=== PATIENT | male | born 1980 | race Native Hawaiian/Other Pacific Islander ===

== ENCOUNTER 2017-12-01 19:50 | Inpatient (IN) | payer OTHER ==
[~2017-12-01] VITALS: Ht 165.1 cm; Wt 60.4 kg
[2017-12-01 20:05] VITALS: BP 131/78; PULSE 95; RESP 12; TEMP 97.5; O2SAT 98
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
[2017-12-01 20:33] LABS: BASOPHIL # 0.1 TH/MM3 (0-0.2); BASOPHIL % 0.5 % (0.0-2.0); EOSINOPHIL % 0.1 % (0.0-4.0); HEMATOCRIT 45.8 % (39.0-51.0); HEMOGLOBIN 15.4 GM/DL (13.0-17.0); LYMPHOCYTE # 1.2 TH/MM3 (1.0-4.8); MEAN CELL VOLUME 87.5 FL (80.0-100.0); MEAN CORPUSCULAR HEMOGLOBIN 29.4 PG (27.0-34.0); MEAN CORPUSCULAR HGB CONC 33.6 % (32.0-36.0); MONO % 6.6 % (0.0-8.0); MONOCYTE # 1.2 TH/MM3 (0-0.9); NEUT % 85.8 % (16.0-70.0); PLATELET COUNT 231 TH/MM3 (150-450); RED BLOOD COUNT 5.24 MIL/MM3 (4.50-5.90); RED CELL DISTRIBUTION WIDTH 13.4 % (11.6-17.2); WHITE BLOOD COUNT 17.5 TH/MM3 (4.0-11.0)
[2017-12-01 20:50] VITALS: BP 128/72; PULSE 88; RESP 20; TEMP 98; O2SAT 98
[2017-12-01 20:59] LABS: ALBUMIN 4.3 GM/DL (3.4-5.0); AST (GOT) 25 U/L (15-37); BICARBONATE 24.5 MEQ/L (21.0-32.0); BLOOD UREA NITROGEN 14 MG/DL (7-18); CALCIUM 9.5 MG/DL (8.5-10.1); CHLORIDE 105 MEQ/L (98-107); CREATININE 1.43 MG/DL (0.60-1.30); GLOMERULAR FILTRATION RATE 56 ML/MIN (>89); GLUCOSE,RANDOM 76 MG/DL (74-106); SODIUM (NA) 139 MEQ/L (136-145)
[2017-12-01 21:12] LABS: ALKALINE PHOSPHATASE 52 U/L (45-117); ALT (GPT) 21 U/L (12-78); TOTAL BILIRUBIN ADULT 0.5 MG/DL (0.2-1.0); TOTAL PROTEIN 8.1 GM/DL (6.4-8.2)
[2017-12-01 21:16] LABS: ACETAMINOPHEN LESS THAN 2.0 MCG/ML (10.0-30.0)
[2017-12-01] MEDS ORDERED: TETANUS/DIPHTHERIA TOXOID ADULT 0.5 ML VIAL IM ONE (21:30)
[2017-12-01] MEDS ORDERED: ZIPRASIDONE MESYLATE 20 MG VIAL IM ONE (21:30)
--- NOTE | 2017-12-01 22:01 | RADRPT ---
EXAM DATE: 12/01/2017 9:57 PM EDT AGE/SEX: 37 years / Male INDICATIONS: Altered mental status. CLINICAL DATA: This is the patient's initial encounter. Patient reports that signs and symptoms have been present for 1 day and indicates a pain score of Nonresponsive. MEDICAL/SURGICAL HISTORY: . Substance abuse Appendectomy. RADIATION DOSE: 34.96 CTDI (mGy) COMPARISON: No prior exams available for comparison. TECHNIQUE: CT of the head without contrast. Using automated exposure control and adjustment of the mA and/or kV according to patient size, radiation dose was kept as low as reasonably achievable to ob tain optimal diagnostic quality images. DICOM format image data is available electronically for revi ew and comparison. FINDINGS: Cerebrum: The ventricles are normal for age. No evidence of midline shift, mass lesion, hemorrhage or acute infarction. No extraaxial fluid collections are seen. Posterior Fossa: The cerebellum and brainstem are intact. The 4th ventricle is midline. The cerebe llopontine angle is unremarkable. Extracranial: The visualized portion of the orbits is intact. Skull: The calvaria is intact. No evidence of skull fracture. CONCLUSION: 1. No acute intracranial abnormality Electronically signed by: Umesh Iglesias MD 12/01/2017 10:00 PM EDT
--- NOTE | 2017-12-01 22:09 | RADRPT ---
EXAM DATE: 12/01/2017 10:00 PM EDT AGE/SEX: 37 years / Male INDICATIONS: Rib pain. CLINICAL DATA: This is the patient's initial encounter. Patient reports that signs and symptoms have been present for 1 day and indicates a pain score of Nonresponsive. MEDICAL/SURGICAL HISTORY: Non-responsive. Non-responsive. COMPARISON: No prior exams available for comparison. FINDINGS: There is no evidence of displaced fracture. No destructive lesions or areas of periosteal thickening are seen. Expiratory view of the chest is negative for pneumothorax. The mediastinal structures ar e midline. CONCLUSION: No fracture seen. Electronically signed by: Umesh Iglesias MD 12/01/2017 10:07 PM EDT
--- NOTE | 2017-12-01 22:11 | RADRPT ---
EXAM DATE: 12/01/2017 10:09 PM EDT AGE/SEX: 37 years / Male INDICATIONS: Pain. CLINICAL DATA: This is the patient's initial encounter. Patient reports that signs and symptoms have been present for 1 day and indicates a pain score of Nonresponsive. MEDICAL/SURGICAL HISTORY: Non-responsive. Non-responsive. COMPARISON: No prior exams available for comparison. FINDINGS: Bony structures are intact and in normal alignment. Osseous density is normal. Soft tissues are unre markable. No radiopaque foreign bodies seen. CONCLUSION: No acute fracture. Electronically signed by: Umesh Iglesias MD 12/01/2017 10:10 PM EDT
--- NOTE | 2017-12-01 22:11 | RADRPT ---
EXAM DATE: 12/01/2017 10:02 PM EDT AGE/SEX: 37 years / Male INDICATIONS: Pain. CLINICAL DATA: This is the patient's initial encounter. Patient reports that signs and symptoms have been present for 1 day and indicates a pain score of Nonresponsive. MEDICAL/SURGICAL HISTORY: Non-responsive. Non-responsive. COMPARISON: No prior exams available for comparison. FINDINGS: Bony structures are intact and in normal alignment. Joints are intact without dislocation or signifi cant arthropathy. Osseous density is normal. Soft tissues are unremarkable. No radiopaque foreign bodies seen. CONCLUSION: Unremarkable right hip Electronically signed by: Umesh Iglesias MD 12/01/2017 10:09 PM EDT
--- NOTE | 2017-12-01 22:11 | RADRPT ---
EXAM DATE: 12/01/2017 10:03 PM EDT AGE/SEX: 37 years / Male INDICATIONS: Pain. CLINICAL DATA: This is the patient's initial encounter. Patient reports that signs and symptoms have been present for 1 day and indicates a pain score of Nonresponsive. MEDICAL/SURGICAL HISTORY: Non-responsive. Non-responsive. COMPARISON: No prior exams available for comparison. FINDINGS: Bony structures are intact and in normal alignment. Osseous density is normal. Soft tissues are unre markable. No radiopaque foreign bodies seen. Sclerotic focus proximal phalanx great toe. CONCLUSION: No acute fracture. Probable bone island great toe. Electronically signed by: Umesh Iglesias MD 12/01/2017 10:10 PM EDT
[2017-12-02 01:29] VITALS: BP 132/70; PULSE 86; RESP 20; O2SAT 98
[2017-12-02 10:43] VITALS: BP 102/58; PULSE 82; RESP 17; O2SAT 98
[2017-12-02 13:54] VITALS: BP 105/55; PULSE 65; RESP 18; O2SAT 98
[2017-12-02 18:38] VITALS: BP 116/69; PULSE 72; RESP 18; O2SAT 100
[2017-12-02 21:15] VITALS: BP 123/64; PULSE 62; RESP 18; TEMP 97.4; O2SAT 99
[2017-12-02] MEDS ORDERED: ALUMINUM/MAGNESIUM/SIMETH 30 ML CUP PO PRN (22:00)
[2017-12-02] MEDS ORDERED: LORazepam 2 MG/ML VIAL IM PRN (22:00)
[2017-12-02] MEDS ORDERED: LORazepam 1 MG TAB PO PRN (22:00)
[2017-12-02] MEDS ORDERED: ACETAMINOPHEN 325 MG TAB PO PRN (22:00)
[2017-12-02] MEDS ORDERED: MAGNESIUM HYDROXIDE SUSP 30 ML CUP PO PRN (22:00)
[2017-12-03 05:23] VITALS: BP 102/66; PULSE 70; RESP 16; TEMP 97.6; O2SAT 97
[2017-12-03] MEDS: NICOTINE 21 MG/24 HR PATCH T-DERMAL SCH (07:34)
[2017-12-03 10:13] LABS: CHOLESTEROL 171 MG/DL (120-200); CHOLESTEROL/ HDL RATIO 1.68 RATIO; HDL CHOLESTEROL 101.7 MG/DL (40.0-60.0); LDL CHOLESTEROL 44 MG/DL (0-99); TRIGLYCERIDES 127 MG/DL (42-150)
[2017-12-03] MEDS: OLANZapine 5 MG TAB PO SCH ×2 (12:30→21:39)
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
[2017-12-03 18:10] VITALS: BP 131/73; PULSE 76; RESP 16; TEMP 97.8; O2SAT 99
[2017-12-03] MEDS: REMOVE OLD NICOTINE PATCH T-DERMAL SCH (21:00)
[2017-12-03] MEDS: MIRTAZAPINE 15 MG TAB PO SCH (21:39)
[2017-12-03 22:41] LABS: HEMOGLOBIN A1C 5.3 % (4.3-6.0)
[2017-12-04 06:27] VITALS: BP 131/63; PULSE 73; RESP 18; TEMP 98.1; O2SAT 99
[2017-12-04] MEDS: NICOTINE 21 MG/24 HR PATCH T-DERMAL SCH (09:00)
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
[2017-12-04] MEDS: OLANZapine 5 MG TAB PO SCH ×2 (09:34→20:39)
[2017-12-04 18:09] VITALS: BP 118/78; PULSE 72; RESP 19; TEMP 97.7; O2SAT 99
[2017-12-04] MEDS: MIRTAZAPINE 15 MG TAB PO SCH (20:39)
[2017-12-04] MEDS: REMOVE OLD NICOTINE PATCH T-DERMAL SCH (20:40)
[2017-12-05 05:30] VITALS: BP 137/71; PULSE 68; RESP 20; TEMP 97.8; O2SAT 98
[2017-12-05] MEDS: NICOTINE 21 MG/24 HR PATCH T-DERMAL SCH (09:00)
[2017-12-05] MEDS: OLANZapine 5 MG TAB PO SCH ×2 (09:37→21:33)
--- NOTE | 2017-12-05 13:09 | HHI.PYPN ---
Subjective Remarks Reviewed electronic medical record and discussed case with staff. Follow-up was conducted in patient's room. Patient is discharged focused. He reports that he "feels a lot better". However he seems to lack any insight into why he is here. He is reporting that he was merely on the bridge trying to get help from the police. 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 His speech is clear, organized, and logical. However, his story is quite bizarre. Mental Status Examination Appearance: Disheveled Consciousness: Alert Orientation: Person, Place Motor Activity: Normal gait Speech: Unremarkable Language: Adequate Fund of Knowledge: Inadequate Attention and Concentration: Adequate Mood: Appropriate Affect: Sad Thought Process & Associations: Linear Thought Content: Appropriate Hallucination Type: None Delusion Type: Paranoid, Other (persecutory) Suicidal Ideation: No Suicidal Plan: No Suicidal Intention: No Homicidal Ideation: No Homicidal Plan: No Homicidal Intention: No Insight: Poor Judgment: Poor Results Vitals/IOs Vital Signs Date Time Temp Pulse Resp B/P (MAP) Pulse Ox O2 Delivery O2 Flow Rate FiO2 12/05/17 05:30 97.8 68 20 137/71 (93) 98 12/02/17 18:38 Room Air Intake and Output 12/05/17 12/05/17 12/05/17 07:59 15:59 23:59 Intake Total 120 ml Balance 120 ml Assessment & Plan Problem List: (1) Psychosis ICD Codes: F29 - Unspecified psychosis not due to a substance or known physiological condition (2) Crack cocaine use ICD Codes: F14.90 - Cocaine use, unspecified, uncomplicated Assessment & Plan Estimated LOS: Continue with current treatment plan. Patient will be evaluated by attending psychiatrist tomorrow. He lacks insight and is downplaying the events which brought him to be admitted. Days Justification for Cont. Inpt. Moving this patient to a less restrictive environment would likely result in decompensation. Norma Monae Dec 05, 2017 13:09
[2017-12-05] MEDS: hydrOXYzine HCL 50 MG TAB PO PRN (14:00)
[2017-12-05 18:09] VITALS: BP 127/60; PULSE 82; RESP 20; TEMP 98; O2SAT 98
[2017-12-05] MEDS: REMOVE OLD NICOTINE PATCH T-DERMAL SCH (21:00)
[2017-12-05] MEDS: MIRTAZAPINE 15 MG TAB PO SCH (21:33)
[2017-12-06 05:36] VITALS: BP 114/68; PULSE 65; RESP 18; TEMP 97.4; O2SAT 99
[2017-12-06] MEDS: NICOTINE 21 MG/24 HR PATCH T-DERMAL SCH (08:57)
[2017-12-06] MEDS: OLANZapine 5 MG TAB PO SCH ×2 (08:57→20:59)
--- NOTE | 2017-12-06 11:02 | PD.TTN ---
Patient Problems 1. Discharge planning 2. Medication compliance 3. Knowledge deficit 4. Lack of coping skills Progress Toward Goals Provider Present: Dr. Yana Davis Provider Input: Dr. Khalil's treatment team was held to discuss patient's treatment plan, medication and discharge plan. Patient is medication compliant, doing better, denies suicidal and homicidal ideation Nurse(s) Input: Patient is cooperative, paranoid, has poor insight into situation. down playing situation. Psychiatric Counselors Present: Tonya Shelton [facility] Psych Therapist Input: Patient's speech is clear and organized, patient denies suicidal and homicidal ideation. Patient is medication compliant. Patient continues to have poor insight and down plays he's situation. Group Spec/RT/OT/AGUILAR Present: JEFF Hua Group Spec/RT/OT/AGUILAR Input: Patient does not attend groups Tonya Shelton [facility] Dec 06, 2017 11:02
--- NOTE | 2017-12-06 16:24 | HHI.PYPN ---
Subjective Remarks Patient seen for follow, chart reviewed. Discussion nursing staff reported the patient has been compliant with medications with no behavioral disturbances. Patient was found heavily on the unit noted B, cooperative. Patient states that he is feeling "good", reports feeling glad that his [place] in [place] and is currently at a dose shop. He reports having spoken to his brother in [place] and has plans to return there as he states does not have a reason to stay here at [facility]. Patient reports sleeping well, no difficulty eating and drinking, denies feeling depressed or paranoid. Patient states that he was likely having these ideas of paranoia secondary to recent cocaine use. Patient denies any perceptional services at this time. Review of Systems Except as stated in HPI: all other systems reviewed are Neg Mental Status Examination Appearance: Appropriate Consciousness: Alert Orientation: Person, Place Motor Activity: Normal gait Speech: Unremarkable Language: Adequate Fund of Knowledge: Inadequate Attention and Concentration: Adequate Mood: Appropriate Affect: Appropriate Thought Process & Associations: Intact, Linear Thought Content: Appropriate Hallucination Type: None Delusion Type: Paranoid (Denies today) Suicidal Ideation: No Suicidal Plan: No Suicidal Intention: No Homicidal Ideation: No Homicidal Plan: No Homicidal Intention: No Insight: Fair Judgment: Impulsive Results Vitals/IOs Vital Signs Date Time Temp Pulse Resp B/P (MAP) Pulse Ox O2 Delivery O2 Flow Rate FiO2 12/06/17 05:36 97.4 65 18 114/68 (83) 99 12/02/17 18:38 Room Air Assessment & Plan Problem List: (1) Psychosis ICD Codes: F29 - Unspecified psychosis not due to a substance or known physiological condition (2) Crack cocaine use ICD Codes: F14.90 - Cocaine use, unspecified, uncomplicated Assessment & Plan Patient this time denying any mood symptoms at this time, denying any paranoia or persecutory delusions. Patient recent symptoms may have been related to substance intoxication prior to admission but also in part to patient resuming medication regimen which patient has shown improvement. We will continue current medication regimen. Will continue monitor mood and behavior. Collateral information pending from patient's brother. Patient likely for discharge soon. Discharge planning in progress. Justification for Cont. Inpt. At risk for further decompensation if at lower level of care Umesh Davis MD Dec 06, 2017 16:24
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
[2017-12-06] MEDS: hydrOXYzine HCL 50 MG TAB PO PRN (18:17)
[2017-12-06] MEDS: MIRTAZAPINE 15 MG TAB PO SCH (20:59)
[2017-12-06] MEDS: REMOVE OLD NICOTINE PATCH T-DERMAL SCH (20:59)
[2017-12-07] MEDS: hydrOXYzine HCL 50 MG TAB PO PRN (02:08)
[2017-12-07 06:13] VITALS: BP 125/90; PULSE 64; RESP 17; TEMP 98.3; O2SAT 100
[2017-12-07] MEDS: NICOTINE 21 MG/24 HR PATCH T-DERMAL SCH (09:00)
[2017-12-07] MEDS: OLANZapine 5 MG TAB PO SCH (09:20)
[2017-12-07] MEDS ORDERED: MIRTA15 PO (11:55)
[2017-12-07] MEDS ORDERED: OLAN5TAB PO (11:55)
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
== END 2017-12-07 14:35 | disposition home or self-care (01) | DRG 885 ==
LOC: NEDAMB 19:50 → NEDA 12-02 16:38 → H260 12-02 20:43
PROVIDERS: ADMIT Student in an Organized Health Care Education/Training Program; ATTEND Student in an Organized Health Care Education/Training Program
DX: F29 Unspecified psychosis not due to a substance or known physiological condition (principal); F14.90 Cocaine use, unspecified, uncomplicated; Z91.5 Personal history of self-harm
CPT/HCPCS: 70450; 71101; 73502; 73630; 80053; 80061; 80307; 83036; 84443; 85025; 90471; 90714; 96372; J3486